=== PATIENT | female | born 1980 | race Caucasian/White ===

== ENCOUNTER 2020-03-27 11:28 | Emergency (ER) | payer MEDICAID ==
[~2020-03-27] VITALS: Ht 157.5 cm; Wt 81.2 kg
[2020-03-27 11:39] VITALS: Ht 157.5 cm; Wt 81.2 kg
[2020-03-27 12:21] LABS: BASOPHIL % 0.3 % (0-2); PLATELET COUNT 299 x10^3mcL (130-400); RED CELL DISTRIBUTION WIDTH 13.2 % (11.5-14.5)
[2020-03-27 14:47] VITALS: BP 162/100
== END 2020-03-27 14:35 | disposition home or self-care (01) ==
LOC: ED 11:28
PROVIDERS: Emergency Medicine
DX: O36.4XX0 Maternal care for intrauterine death, not applicable or unspecified (principal); E11.9 Type 2 diabetes mellitus without complications; Z3A.12 12 weeks gestation of pregnancy
CPT/HCPCS: 82962